=== PATIENT | male | born 1935 | race Caucasian/White ===

== ENCOUNTER → 2018-10-23 | Outpatient (CLI) | payer OTHER ==
--- NOTE | 2018-10-23 14:36 | PCVCIMAG ---
APPROVED REPORT Study performed: 10/23/2018 11:35:31 EXAM: Comprehensive 2D, Doppler, and color-flow Echocardiogram Patient Location: Echo lab Room #: 2Status: routine BSA: 2.06 HR: 46 bpmBP: 110/64 mmHg Rhythm: Bradycardia Other Information Study Quality: Good Risk Factors: Cardiac Risk Factors: Hyperlipidemia Indications Dyspnea CAD Hx CABG,carotid endarterectomy 2002 2D Dimensions IVSd: 7.82 (7-11mm)LVOT Diam: 20.68 (18-24mm) LVDd: 52.16 mm PWd: 8.66 (7-11mm)Ascending Ao: 32.24 (22-36mm) LVDs: 29.88 (25-40mm) Left Atrium: 30.98 (27-40mm) Aortic Root: 28.44 mm LV Single Plane 4CH: 49.58 % LV Single Plane 2CH: 59.31 % Biplane EF: 54.0 % Volumes Left Atrial Volume (Systole) Single Plane 4CH: 48.12 mLSingle Plane 2CH: 47.28 mL Biplane LA Volume: 49.00 mLLA ESV Index: 24.00 mL/m2 Aortic Valve AoV Peak Felix.: 0.97 m/s AO Peak Gr.: 3.76 mmHgLVOT Max P.05 mmHg LVOT Max V: 0.87 m/s KAYLA Vmax: 3.02 cm2 Mitral Valve E/A Ratio: 0.8 MV Decel. Time: 263.83 ms MV E Max Felix.: 0.46 m/s MV A Felix.: 0.61 m/s MV VTI: 183.06 mm IVRT: 76.12 ms TDI E/Lateral E': 5.75E/Medial E': 7.67 Medial E' Felix.: 0.06 m/s Lateral E' Felix.: 0.08 m/s Pulmonary Valve PV Peak Felix.: 0.71 m/sPV Peak Gr.: 2.04 mmHg Pulmonary Vein P Vein S: 0.51 m/sP Vein A: 0.24 m/s P Vein D: 0.30 m/sP Vein A Dur.: 65.7 msec P Vein S/D Ratio: 1.70 Tricuspid Valve TR Peak Felix.: 2.10 m/s TR Peak Gr.: 17.70 mmHg TV Vmax: 0.43 m/sPA Pressure: 25.00 mmHg Left Ventricle The left ventricle is normal size. Paradoxical septal motion consistent with post-operative state. There is normal left ventricular wall thickness. Left ventricular systolic function is low normal. LVEF is 50-55%. Grade I - abnormal relaxation pattern. Right Ventricle The right ventricle is normal size. The right ventricular systolic function is normal. Atria The left atrium size is normal. The interatrial septum is intact with no evidence for an atrial septal defect. The right atrium size is normal. Aortic Valve Aortic valve is trileaflet. Mild aortic valve sclerosis. No aortic regurgitation is present. There is no aortic valvular stenosis. Mitral Valve The mitral valve is normal in structure. There is no mitral valve regurgitation noted. No evidence of mitral valve stenosis. Tricuspid Valve The tricuspid valve is normal in structure. Trace tricuspid regurgitation with a PA pressure of 25 mmHg. Pulmonic Valve The pulmonary valve is normal in structure. Trace pulmonic regurgitation. Great Vessels The aortic root is normal in size. Aortic arch is not well visualized. The ascending aorta is normal in size. IVC is normal in size and collapses >50% with inspiration. Pericardium There is no pericardial effusion. There is no pleural effusion. <Conclusion> The left ventricle is normal size. LVEF is 50-55%. Paradoxical septal motion consistent with post-operative state. Grade I - abnormal relaxation pattern. The left atrium size is normal. The interatrial septum is intact with no evidence for an atrial septal defect. Aortic valve is trileaflet. Mild aortic valve sclerosis. There is no mitral valve regurgitation noted. Trace tricuspid regurgitation with a PA pressure of 25 mmHg. The aortic root is normal in size. There is no pericardial effusion.
== END | disposition home or self-care (01) ==
LOC: PCVCIMAG 11:41
PROVIDERS: ATTEND Internal Medicine Cardiovascular Disease
DX: I35.8 Other nonrheumatic aortic valve disorders (principal); I25.10 Atherosclerotic heart disease of native coronary artery without angina pectoris; R06.00 Dyspnea, unspecified; I45.10 Unspecified right bundle-branch block; R00.1 Bradycardia, unspecified; E78.5 Hyperlipidemia, unspecified; R09.89 Other specified symptoms and signs involving the circulatory and respiratory systems
CPT/HCPCS: 93306

== ENCOUNTER → 2018-11-27 | Outpatient (CLI) | payer OTHER ==
[~2018-11-27] MED LIST: REGADENOSON 0.4 MG/5 ML DISP.SYRIN. IV ONE
--- NOTE | 2018-11-27 11:39 | PCVCIMAG ---
EXAM: BILATERAL CAROTID DUPLEX INDICATION: Carotid Occlusive Disease. Prior left carotid and arterectomy. FINDINGS: Doppler Measurements (centimeters per second): RIGHT: Peak CCA-69, Peak ECA-74, Diastolic ICA-36, Peak ICA-100, ICA/CCA Ratio-1.5. LEFT: Peak CCA-75, Peak ECA-70, Diastolic ICA-36, Peak ICA-92, ICA/CCA Ratio-1.2. RIGHT CAROTID: The carotid bulb has moderate plaque. The proximal internal carotid artery shows <40% stenosis. The common carotid artery shows no significant stenosis. The external carotid artery shows no significant stenosis. LEFT CAROTID: The carotid bulb has minimal plaque. The proximal internal carotid artery shows no significant stenosis. The common carotid artery shows no significant stenosis. The external carotid artery shows no significant stenosis. Antegrade flow in both vertebral arteries. IMPRESSION: <40% stenosis of the right internal carotid artery with moderate plaque. No significant stenosis of the left internal carotid artery with minimal plaque. LOC:[id number]
--- NOTE | 2018-11-28 11:48 | PCVCIMAG ---
APPROVED REPORT Imaging Protocol: Rest Tc-99m/Stress Tc-99m 1 day Study performed: 11/27/2018 12:37:11 Indication: Chest pain, Dyspnea, CAD Patient Location: Out-Patient Stress Nurse: Marylou Sarabia RN MI Tech:Eugenia Jane [facility] Ht: 6 ft 0 in Wt: 185 lbs BSA: 2.06 m2 HR: 59 bpm BP: 135/70 mmHg BMI: 25.0 Rhythm: Sinus Bradycardia, Incomplete RBBB Medical History Medical History: Hyperlipidemia, COPD, CVD, CAD, Current Smoker Medications: ASA, Celexa, Proscar, Flomax, Doxycycline, Crestor Allergies: No known drug allergies Cardiac Risk Factors: Age Previous Cardiac Procedures: 2003 CABG Pretest Chest Pain Characteristics: No chest pain Physical Disabilities: COPD Resting Data Rest SPECT myocardial perfusion imaging was performed in supine position 45 minutes following the intravenous injection of 10.4 mCi of Tc-99m Sestamibi. Time of rest injection: 1200 Date: 11/27/2018 Administration Route: IV Administration Site: Right AC Pharmacologic Stress Pharmacologic stress test was performed by injecting Regadenoson 0.4 mg IV push over 10-15 seconds immediately followed by the intravenous injection of 31.5 mCi of Tc-99m Sestamibi. Time of stress injection: 1330 Date: 11/27/2018 Administration Route: IV Administration Site: Right AC Gated Stress SPECT was performed 45 minutes after stress injection. The images were gated to evaluate regional wall motion and calculate left ventricular ejection fraction. Stress Test Details Stress Test: Pharmacologic stress testing performed using 0.4 mg of regadenoson per 5 mL given IV over 10 seconds. Reason for pharmacologic stress test: physical limitation, COPD. HRMax Heart Rate (APMHR): 139 bpm Resting HR: 59 bpmTarget HR (85% APMHR): 118 bpm Max HR Achieved: 82 bpm % of APMHR: 58 Recovery HR: 71 bpm BP Resting BP: 135/70 mmHg Max BP: 151/77 mmHg Recovery BP: 115/60 mmHg ECG Resting ECG: Sinus Bradycardia, Incomplete RBB Stress ECG: Sinus Rhythm, Incomplete RBBB Arrhythmia: None Recovery ECG: Sinus Rhythm, Incomplete RBBB Clinical Reason for Termination: Completed protocol Stress Symptoms: Dyspnea, Dizziness Symptoms resolved with caffeine. Stress ECG Conclusion ECG: Non-ischemic Study Quality Study: Good Study Data Post stress, the left ventricular ejection was 83%.. SSS: 0 SRS: 1 SDS: 0 TID = 0.74. Perfusion No evidence of stress induced ischemia or prior myocardial infarction. Wall Motion Normal left ventricular size and function with no regional wall motion abnormalities. Nuclear Conclusion No evidence of stress induced ischemia or prior myocardial infarction. Normal left ventricular size and function with no regional wall motion abnormalities. Post stress, the left ventricular ejection was 83%. No prior study available for comparison. Interpreted by: Osman Ramos MD Electronically Approved: 11/27/2018 18:15:26 <Conclusion> ECG: Non-ischemic
== END | disposition home or self-care (01) ==
LOC: PCVCIMAG 10:53
PROVIDERS: ATTEND Internal Medicine Cardiovascular Disease
DX: I65.21 Occlusion and stenosis of right carotid artery (principal); F17.200 Nicotine dependence, unspecified, uncomplicated; I25.10 Atherosclerotic heart disease of native coronary artery without angina pectoris
CPT/HCPCS: 78452; 93017; 93880; A9500; J2785